=== PATIENT | male | born 1970 | race African-American/Black ===

== ENCOUNTER 2020-12-18 08:13 | Inpatient (IN) ==
[2020-12-18 09:05] LABS: ABS Lymphocytes 0.3 10^3/ul (1.0-4.8); ABS Monocytes 0.6 10^3/ul (0-0.8); Eosinophil % 0.2 %; Lymphocyte % 4.3 %; Nucleated Red Blood Cells % 0.1
[2020-12-18 09:13] LABS: Activated Partial Thrombo Time 38.3 seconds (26.0-38.0); INR 1.98 (0.82-1.09)
[2020-12-18 09:30] LABS: Potassium 5.8 mmol/L (3.5-5.0)
[2020-12-18 09:44] LABS: Anion Gap 17 mmol/L (2-11); Blood Urea Nitrogen 74 mg/dL (6-24); CO2 Carbon Dioxide 20 mmol/L (22-32); Chloride 93 mmol/L (101-111); Glucose 84 mg/dL (70-100); Sodium 130 mmol/L (135-145)
[2020-12-18 09:45] LABS: ALT 42 U/L (7-52); AST 67 U/L (13-39); Albumin/Globulin Ratio 0.7 (1-3); Alkaline Phosphatase 174 U/L (35-149); Calcium 9.6 mg/dL (8.6-10.3); Creatinine, Serum 8.17 mg/dL (0.67-1.17); EGFR African American 8.4 (>60); EGFR Non-African American 6.9 (>60); Globulin 4.2 g/dL (2-4); Total Protein 7.2 g/dL (6.4-8.9)
[2020-12-18 09:46] LABS: C Reactive Protein 346.27 mg/L (<8.01)
[2020-12-18] MEDS: Piperacillin/Tazobac ADVAN 3.375 GM in NS 0.9% 100 ml BAG 100 ML IV ONE (09:59)
[2020-12-18] MEDS: NS 0.9% 250 ml 250 ML IV ONE (09:59)
[2020-12-18 10:10] LABS: Hematocrit 39 % (42-52); Hemoglobin 12.2 g/dL (14.0-18.0); Mean Corpuscular Hemoglobin 27 pg (27-31); Mean Corpuscular Hgb Conc 32 g/dL (31-36); Mean Corpuscular Volume 87 fL (80-94); Mean Platelet Volume 10.6 fL (7.4-10.4); Platelet Count 141 10^3/uL (150-450); Red Blood Count 4.45 10^6 /uL (4.18-5.48); Red Cell Distribution Width 16 % (10-15); White Blood Count 5.9 10^3/uL (3.5-10.8)
[2020-12-18 10:22] LABS: RBC Morphology Normal (Normal)
[2020-12-18 10:38] LABS: Rapid COVID-19 Molecular Undetected (Undetected)
[2020-12-18] MEDS: Vancomycin 1,000 MG in NS 0.9% 250 ml 250 ML IVPB ONE (10:45)
[2020-12-18] MEDS ORDERED: Cefepime ADVAN 1 GM in NS 0.9% 50 ML 50 ML IVPB SCH (13:00)
[2020-12-18] MEDS ORDERED: Vancomycin per Pharmacy 1 EA NOTE FOLLOW UP SCH (13:00)
[2020-12-18] MEDS: Cefepime 1 GM in Dextrose 1 GM/50 ML BAG IV ONE (13:26)
[2020-12-18] MEDS: Heparin 1,000 UNIT/ML 10 ml (10,000 UNITS) CATHLAB/DIALYSIS DIALYSIS ONE (14:20)
[2020-12-18 14:59] LABS: HIV 4th Generation Nonreactive (Nonreactive)
[2020-12-18] MEDS: Calcium Carbonate LIQ 1,250 mg/5 ml UDC PO SCH (15:00)
[2020-12-18 15:27] LABS: Troponin I 0.16 ng/mL (<0.03)
[2020-12-18 17:11] LABS: Hepatitis B Surface Antigen Nonreactive (Nonreactive)
[2020-12-18 17:28] LABS: Hepatitis B Surface Ab Not Immune (Immune)
[2020-12-18] MEDS: Metoprolol Tartrate 5 mg VIAL 5 ml VIAL (1 mg/ml) IV PRN (18:00)
[2020-12-18 19:53] LABS: SARS Coronavirus-2 Undetected (Undetected)
[2020-12-18] MEDS: oxyCODONE 5 mg/5 ml ORAL.SOLN UDC PO PRN (20:13)
[2020-12-18 21:36] LABS: Chloride 94 mmol/L (101-111); Sodium 128 mmol/L (135-145)
[2020-12-18 21:50] LABS: Blood Urea Nitrogen 52 mg/dL (6-24); CO2 Carbon Dioxide 21 mmol/L (22-32); Calcium 8.6 mg/dL (8.6-10.3); Creatinine, Serum 5.95 mg/dL (0.67-1.17); EGFR African American 12.1 (>60); Glucose 70 mg/dL (70-100)
[2020-12-18 21:59] LABS: Anion Gap 13 mmol/L (2-11)
[2020-12-18 22:23] LABS: Troponin I 0.15 ng/mL (<0.03)
[2020-12-19] MEDS: Vancomycin Random Level NOTE FOLLOW UP ONE (06:20)
[2020-12-19 06:43] LABS: INR 1.75 (0.82-1.09)
[2020-12-19 06:53] LABS: ALT 42 U/L (7-52); Albumin 3.1 g/dL (3.2-5.2); Albumin/Globulin Ratio 0.8 (1-3); Alkaline Phosphatase 164 U/L (35-149); Blood Urea Nitrogen 60 mg/dL (6-24); CO2 Carbon Dioxide 23 mmol/L (22-32); Calcium 9.7 mg/dL (8.6-10.3); Chloride 93 mmol/L (101-111); EGFR African American 10.9 (>60); Globulin 4.1 g/dL (2-4); Magnesium 1.8 mg/dL (1.9-2.7); Phosphorus 3.3 mg/dL (2.5-5.0); Sodium 131 mmol/L (135-145); Total Protein 7.2 g/dL (6.4-8.9)
[2020-12-19 07:12] LABS: Vancomycin Random 8.8 mcg/mL
[2020-12-19 07:21] LABS: Hematocrit 39 % (42-52); Hemoglobin 12.7 g/dL (14.0-18.0); Mean Corpuscular Hemoglobin 28 pg (27-31); Mean Corpuscular Hgb Conc 32 g/dL (31-36); Mean Corpuscular Volume 85 fL (80-94); Red Blood Count 4.58 10^6 /uL (4.18-5.48); Red Cell Distribution Width 16 % (10-15)
[2020-12-19 07:38] LABS: Glucose 43 mg/dL (70-100)
[2020-12-19] MEDS: Dextrose 50% Syringe 50 ml 25 GM/50 ML SYRINGE IV PUSH PRN ×2 (07:46→12:16)
[2020-12-19 07:48] LABS: Mean Platelet Volume 10.7 fL (7.4-10.4); Platelet Count 103 10^3/uL (150-450)
[2020-12-19 07:50] LABS: White Blood Count 8.3 10^3/uL (3.5-10.8)
[2020-12-19 07:52] LABS: Anion Gap 15 mmol/L (2-11)
[2020-12-19] MEDS ORDERED: Dextrose 50% Syringe 50 ml 25 GM/50 ML SYRINGE IV PUSH PRN (08:04)
[2020-12-19 08:26] LABS: Potassium Redraw 5.7 mmol/L (3.5-5.0)
[2020-12-19 09:46] LABS: Potassium Redraw 5.7 mmol/L (3.5-5.0)
[2020-12-19] MEDS: Heparin 1,000 UNIT/ML 10 ml (10,000 UNITS) CATHLAB/DIALYSIS DIALYSIS ONE (10:58)
[2020-12-19] MEDS: D10W 1000 ml BAG 1,000 ML IV SCH (11:06)
[2020-12-19] MEDS: Cefepime 1 GM in Dextrose 1 GM/50 ML BAG IV SCH (15:59)
[2020-12-20 04:44] LABS: INR 1.99 (0.86-1.15)
[2020-12-20 04:45] LABS: Hematocrit 41 % (42-52); Hemoglobin 13.2 g/dL (14.0-18.0); Mean Corpuscular Hemoglobin 28 pg (27-31); Mean Corpuscular Hgb Conc 32 g/dL (31-36); Mean Corpuscular Volume 85 fL (80-94); Mean Platelet Volume 10.5 fL (7.4-10.4); Platelet Count 75 10^3/uL (150-450); Red Blood Count 4.76 10^6 /uL (4.18-5.48); Red Cell Distribution Width 16 % (10-15)
[2020-12-20 06:04] LABS: Calcium 9.8 mg/dL (8.6-10.3); Magnesium 1.8 mg/dL (1.9-2.7); Potassium 4.9 mmol/L (3.5-5.0)
[2020-12-20 06:10] LABS: Creatinine, Serum 5.48 mg/dL (0.67-1.17); EGFR African American 13.3 (>60); Phosphorus 2.7 mg/dL (2.5-5.0)
[2020-12-20] MEDS: D10W 1000 ml BAG 1,000 ML IV SCH (08:10)
[2020-12-20] MEDS: Magnesium Sulfate 2 gm BAG 2 GM/50 ML BAG IVPB ONE (08:11)
[2020-12-20] MEDS ORDERED: D10W 1000 ml BAG 1,000 ML IV SCH (08:25)
[2020-12-20] MEDS ORDERED: CMCS: Saliva Substitute (NF) 1 SPRAY BTL MT PRN (14:47)
[2020-12-20] MEDS: Morphine 2 MG/ML SYRINGE IV PRN (16:00)
[2020-12-20 19:30] VITALS: BP 87/58
[2020-12-20] MEDS: LORazepam 2 mg VIAL 1 ml IV PUSH PRN (20:14)
[2020-12-20] MEDS: Lorazepam PYXIS KEY ONE (22:30)
[2020-12-21] MEDS: D10W 1000 ml BAG 1,000 ML IV SCH (00:04)
[2020-12-21] MEDS ORDERED: LORazepam 2 mg VIAL 1 ml IV PUSH PRN (10:43)
[2020-12-21] MEDS ORDERED: Morphine ORAL CONCENTRATE 5 MG/0.25 ML ORAL.SYRIN SL PRN (10:43)
== END 2020-12-21 11:32 | disposition expired ==
LOC: ED 08:13 → ICU 08:42 → MED 12-20 16:33
PROVIDERS: ADMIT Surgery Surgical Critical Care; ATTEND Hospitalist